=== PATIENT | female | born 1960 | race Caucasian/White ===

== ENCOUNTER 2016-11-24 16:48 | Emergency (ER) | payer OTHER ==
[~2016-11-24] VITALS: Ht 172.7 cm; Wt 64.0 kg
[~2016-11-24 16:48] MED LIST: AMBI5TAB
[2016-11-24 16:50] VITALS: BP 133/81; PULSE 81; RESP 16; TEMP 98.9; O2SAT 98
[2016-11-24] MEDS ORDERED: ATOR10TA15 PO (17:05)
[2016-11-24] MEDS ORDERED: LORA-373 PO (17:05)
[2016-11-24] MEDS ORDERED: AMBI5TAB PO (17:05)
[2016-11-24] MEDS ORDERED: SODIUM CHLORIDE 0.9% FLUSH 10 ML FLUSH IVF PRN (17:15)
[2016-11-24] MEDS ORDERED: ASPIRIN 325 MG TAB PO ONE (17:15)
--- NOTE | 2016-11-24 17:20 | PD ---
HPI . chest pain Chief Complaint: Chest Pain Time Seen by Provider: 16:58 Travel History International Travel<30 days: No Contact w/Intl Traveler<30days: No Traveled to known affect area: No History of Present Illness HPI 56 year old female presents complaining of chest pain. Onset was 1.5 hours ago and lasted 20 minutes. She was standing at the store checking out when it occurred. Describes it as mid-chest pressure. Radiation through to her back and right shoulder. Had some associated shortness of breath with it. No nausea, vomiting or diaphoresis. It has improved and she is not having any pain currently. No known aggravating or alleviating factors. She had a similar episode about a year and a half ago, never saw a doctor for it. No history of cardiac problems, hypertension or diabetes. PFSH Past Medical History Cancer: Yes (BREAST) High Cholesterol: Yes Diminished Hearing: No Past Surgical History Gynecologic Surgery: Yes (RIGHT SIDED MASECTOMY 2003) Hysterectomy: Yes Mastectomy: Yes (RIGHT) Social History Alcohol Use: Yes (2/DAY) Tobacco Use: Yes (1/2 PPD) Substance Use: No Allergies-Medications (Allergen,Severity, Reaction): Coded Allergies: Shrimp (Verified Allergy, Severe, 11/24/16) NAUSEA/VOMITING Reported Meds & Prescriptions Reported Meds & Active Scripts Active Reported Lorazepam 0.5 Mg Tab 0.5 Mg PO Q6H PRN Ambien (Zolpidem Tartrate) 5 Mg Tab 5 Mg PO HS PRN Atorvastatin (Atorvastatin Calcium) 10 Mg Tab 10 Mg PO DAILY Review of Systems General / Constitutional: No: Fever, Chills HENT: No: Headaches Cardiovascular: Positive: Chest Pain or Discomfort, No: Tachycardia Respiratory: Positive: Shortness of Breath, No: Wheezing Gastrointestinal: No: Nausea, Vomiting Musculoskeletal: No: Myalgias Neurologic: No: Syncope Physical Exam Narrative GENERAL: Awake and alert female in no acute distress. SKIN: Warm and dry. No rashes. HEAD: Atraumatic. Normocephalic. EYES: Pupils equal and round. Extraocular eye movements intact. ENT: No nasal bleeding or discharge. Mucous membranes pink and moist. NECK: Trachea midline. Neck supple. No JVD. CARDIOVASCULAR: Regular rate and rhythm. No murmurs or rubs. RESPIRATORY: No accessory muscle use. Lungs clear to auscultation bilaterally. GASTROINTESTINAL: Abdomen soft, non-tender, nondistended. MUSCULOSKELETAL: No obvious deformities. No edema. No calf tenderness or swelling. NEUROLOGICAL: Awake and alert. No obvious cranial nerve deficits. Motor grossly within normal limits. Normal speech. PSYCHIATRIC: Appropriate mood and affect; insight and judgment normal. Data Data Last Documented VS Vital Signs Date Time Temp Pulse Resp B/P Pulse Ox O2 Delivery O2 Flow Rate FiO2 11/24/16 17:26 109/68 107/69 11/24/16 17:22 73 16 98 11/24/16 16:50 98.9 Orders Aspirin (Aspirin) (11/24/16 17:15) Electrocardiogram (11/24/16 17:10) Basic Metabolic Panel (Bmp) (11/24/16 17:10) Ckmb (Isoenzyme) Profile (11/24/16 17:10) Complete Blood Count With Diff (11/24/16 17:10) Magnesium (Mg) (11/24/16 17:10) Prothrombin Time / Inr (Pt) (11/24/16 17:10) Act Partial Throm Time (Ptt) (11/24/16 17:10) Troponin I (11/24/16 17:10) Chest, Single Ap (11/24/16 17:10) Ecg Monitoring (11/24/16 17:10) Bilateral Bp Monitoring (11/24/16 17:10) Iv Access Insert/Monitor (11/24/16 17:10) Oximetry (11/24/16 17:10) Oxygen Administration (11/24/16 17:10) Sodium Chloride 0.9% Flush (Ns Flush) (11/24/16 17:15) CKMB (11/24/16 17:00) CKMB% (11/24/16 17:00) Labs Laboratory Tests Test 11/24/16 17:00 White Blood Count 12.1 TH/MM3 Red Blood Count 3.83 MIL/MM3 Hemoglobin 13.9 GM/DL Hematocrit 39.5 % Mean Corpuscular Volume 103.0 FL Mean Corpuscular Hemoglobin 36.4 PG Mean Corpuscular Hemoglobin 35.3 % Concent Red Cell Distribution Width 11.5 % Platelet Count 392 TH/MM3 Mean Platelet Volume 7.6 FL Neutrophils (%) (Auto) 61.7 % Lymphocytes (%) (Auto) 25.7 % Monocytes (%) (Auto) 7.0 % Eosinophils (%) (Auto) 4.3 % Basophils (%) (Auto) 1.3 % Neutrophils # (Auto) 7.5 TH/MM3 Lymphocytes # (Auto) 3.1 TH/MM3 Monocytes # (Auto) 0.8 TH/MM3 Eosinophils # (Auto) 0.5 TH/MM3 Basophils # (Auto) 0.2 TH/MM3 CBC Comment DIFF FINAL Differential Comment Prothrombin Time 10.9 SEC Prothromb Time International 1.0 RATIO Ratio Activated Partial 30.7 SEC Thromboplast Time Sodium Level 140 MEQ/L Potassium Level 3.6 MEQ/L Chloride Level 105 MEQ/L Carbon Dioxide Level 27.1 MEQ/L Anion Gap 8 MEQ/L Blood Urea Nitrogen 6 MG/DL Creatinine 0.59 MG/DL Estimat Glomerular Filtration 105 ML/MIN Rate Random Glucose 117 MG/DL Calcium Level 9.3 MG/DL Magnesium Level 2.0 MG/DL Total Creatine Kinase 103 U/L Creatine Kinase MB LESS THAN 0.5 NG/ML Troponin I LESS THAN 0.02 NG/ML MDM Medical Decision Making Medical Screen Exam Complete: Yes Emergency Medical Condition: Yes Differential Diagnosis Differentials include but are not limited to HI, angina, pericarditis, costochondritis, GERD, PE, anxiety. Narrative Course Patient presents after an episode of chest pain that lasted approximately 20 minutes. It occurred 1.5 hours prior to arrival. She was not having any pain while in the ED. 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 She is not having any tachypnea or tachycardia to suggest PE. Aspirin was administered. Chest x-ray and EKG were performed. Troponin and CK-MB was ordered along with other basic labs. Last Impressions Chest X-Ray 11/24/16 1710 Signed Impressions: Service Date/Time: Thursday, November 24, 2016 17:20 - CONCLUSION: No acute cardiopulmonary disease. Herman Ruiz MD Initial plan was to admit patient to chest pain center for serial cardiac enzymes. Patient was initially agreeable to this plan, however, after some discussion she decided to go home instead and follow up with her PCP. She was given return precautions and agrees to return as needed. Procedures Procedure Narrative EKG showed normal sinus rhythm. No ST depression or elevation. Normal intervals. Diagnosis Primary Impression: Chest pain Qualified Code: R07.9 - Chest pain, unspecified type Patient Instructions: Chest Pain (ED), General Instructions Disposition: 01 DISCHARGE HOME Condition: Stable Gisela Delong MD Nov 24, 2016 17:20 Gisela Delong MD Nov 24, 2016 17:20
[2016-11-24 17:21] LABS: AUTOMATED NEUTROPHIL # 7.5 TH/MM3 (1.8-7.7); BASOPHIL # 0.2 TH/MM3 (0-0.2); BASOPHIL % 1.3 % (0.0-2.0); EOSINOPHIL # 0.5 TH/MM3 (0-0.4); EOSINOPHIL % 4.3 % (0.0-4.0); HEMATOCRIT 39.5 % (35.0-46.0); HEMO FLAGS DIFF FINAL; LYMPH % 25.7 % (9.0-44.0); LYMPHOCYTE # 3.1 TH/MM3 (1.0-4.8); MEAN CORPUSCULAR HEMOGLOBIN 36.4 PG (27.0-34.0); MEAN CORPUSCULAR HGB CONC 35.3 % (32.0-36.0); NEUT % 61.7 % (16.0-70.0); PLATELET COUNT 392 TH/MM3 (150-450); RED BLOOD COUNT 3.83 MIL/MM3 (4.00-5.30); RED CELL DISTRIBUTION WIDTH 11.5 % (11.6-17.2); WHITE BLOOD COUNT 12.1 TH/MM3 (4.0-11.0)
[2016-11-24 17:22] VITALS: BP 109/68; PULSE 73; RESP 16; O2SAT 98
[2016-11-24 17:26] VITALS: BP_SYST 107; BP_SYST 109; BP_DIAS 68; BP_DIAS 69
[2016-11-24 17:30] LABS: CHLORIDE 105 MEQ/L (98-107); POTASSIUM 3.6 MEQ/L (3.5-5.1); SODIUM (NA) 140 MEQ/L (136-145)
--- NOTE | 2016-11-24 17:30 | RADRPT ---
EXAM DATE/TIME: 11/24/2016 17:20 [facility] COMPARISON: No previous studies available for comparison. INDICATIONS : Chest pain, short of breath MEDICAL HISTORY : None. SURGICAL HISTORY : None. ENCOUNTER: Initial ACUITY: 1 day PAIN SCORE: 3/10 LOCATION: Bilateral chest FINDINGS: The lungs are clear without infiltrate, nodule, or mass. There is no appreciable pleural effusion fo r technique. Heart and mediastinum are unremarkable. There is old healed right proximal humeral frac ture. CONCLUSION: No acute cardiopulmonary disease. Herman Ruiz MD on November 24, 2016 at 17:28 Board Certified Radiologist. This report was verified electronically.
[2016-11-24 17:33] LABS: ANION GAP 8 MEQ/L (5-15); BICARBONATE 27.1 MEQ/L (21.0-32.0); BLOOD UREA NITROGEN 6 MG/DL (7-18)
[2016-11-24 17:35] LABS: APTT (PATIENT) 30.7 SEC (24.3-30.1); PROTHROMBIN TIME - PATIENT 10.9 SEC (9.8-11.6)
[2016-11-24 17:36] LABS: GLOMERULAR FILTRATION RATE 105 ML/MIN (>89)
[2016-11-24 17:39] LABS: CREATINE KINASE 103 U/L (26-192)
[2016-11-24 17:52] LABS: CKMB LESS THAN 0.5 NG/ML (0.5-3.6)
[2016-11-24 19:27] VITALS: BP 92/59
--- NOTE | 2016-11-26 19:59 | EKG ---
Date Performed: 11/24/2016 Time Performed: 16:58:38 PTAGE: 56 years EKG: Sinus rhythm NORMAL ECG PREVIOUS TRACING 07/29/2003 10.28 Since previous tracing, no significant change noted DOCTOR: Melissa Lopes Interpretating Date/Time 11/26/2016 19:59:00
== END 2016-11-24 19:30 | disposition home or self-care (01) ==
LOC: PHED 16:48
DX: R07.9 Chest pain, unspecified (principal); R06.02 Shortness of breath; F17.200 Nicotine dependence, unspecified, uncomplicated; Z79.899 Other long term (current) drug therapy
CPT/HCPCS: 71010; 80048; 82550; 82552; 83735; 84484; 85025; 85610; 85730; 93005